=== PATIENT | female | born 1990 | race African-American/Black ===

== ENCOUNTER 2017-05-05 06:58 | Emergency (ER) | payer OTHER ==
[~2017-05-05] VITALS: Ht 167.6 cm; Wt 77.1 kg
[~2017-05-05 06:58] MED LIST: BUSPAR PO; BUTALB-APAP-CA1 EACH PO; FELDENE20 MG PO; FLEXERIL PO; GIANVI 3 MG-0.1 EACH PO; IBUPROFEN 800800 M1 PO; LEXAPRO20 MG PO; PERCOCET 5-3251 EACH PO; PHENERGAN 25 MG25 M1 PO; PROZAC40 MG PO; ULTRAM 50MG TAB50 MG PO; VICODIN 5-5001 EACH PO
[2017-05-05] MEDS ORDERED: ZOLOFT50 MG PO (07:09)
[2017-05-05] MEDS ORDERED: IRON325 PO (07:10)
[2017-05-05] MEDS ORDERED: COLACE100 MG PO (07:10)
[2017-05-05 07:23] LABS: URINE BILIRUBIN NEGATIVE (Negative); URINE BLOOD TRACE (Negative); URINE CLARITY CLEAR; URINE COLOR YELLOW; URINE GLUCOSE-RANDOM* NEGATIVE (Negative); URINE KETONES TRACE (Negative); URINE LEUKOCYTES-REFLEX NEGATIVE (Negative); URINE NITRITE-REFLEX NEGATIVE (Negative); URINE PROTEIN (DIPSTICK) NEGATIVE (Negative); URINE SPECIFIC GRAVITY 1.025 (1.005-1.035); URINE UROBILINOGEN 0.2 E.U./dl (0.2-1.0)
[2017-05-05 07:41] LABS: ABSOLUTE NEUTROPHILS 2.6 thou/uL (1.4-8.2); BASOPHILS 0.6 % (0.0-2.0); EOSINOPHILS 1.9 % (0.0-3.0); HEMATOCRIT 36.1 % (37.0-47.0); HEMOGLOBIN 11.7 gm/dL (12.0-15.0); LYMPHOCYTES 46.7 % (24.0-44.0); MCH 26.6 pg (26.0-34.0); MCHC 32.4 g/dL (28.0-37.0); MCV 82.1 fL (80.0-100.0); MONOCYTES 8.5 % (1.0-8.0); PLATELET COUNT 229 thou/uL (150-400); POLYS 42.3 % (36.0-66.0); RDW 19.1 % (10.5-14.5); WBC 6.1 thou/uL (4.0-11.0)
[2017-05-05 07:53] LABS: CALCIUM 9.4 mg/dL (8.5-10.1); CREATININE 0.8 mg/dL (0.6-1.0)
[2017-05-05 07:59] LABS: ALBUMIN 4.1 g/dL (3.4-5.0); TOTAL BILIRUBIN 0.3 mg/dL (<0.1-1.0)
[2017-05-05] MEDS ORDERED: DOXYCYCLINE 10100 MG PO (09:41)
[2017-05-05] MEDS ORDERED: TRAMADOL 50 MG50 MG PO (09:41)
[2017-05-05] MEDS ORDERED: NAPROSYN500 MG PO (09:41)
== END 2017-05-05 10:20 | disposition home or self-care (01) ==
LOC: ER 06:58
PROVIDERS: Emergency Medicine
DX: N73.9 Female pelvic inflammatory disease, unspecified (principal)